=== PATIENT | male | born 1980 | race Caucasian/White ===

== ENCOUNTER 2020-01-21 00:33 | Emergency (ER) | payer OTHER ==
[~2020-01-21] VITALS: Ht 172.7 cm; Wt 104.3 kg
[2020-01-21] MEDS ORDERED: MAGIC MOUTHWASH SWISH&SPIT (01:20)
[2020-01-21] MEDS ORDERED: HYDROCODONE-ACE15 ML PO (01:21)
[2020-01-21] MEDS ORDERED: PREDNISONE50 MG PO (01:21)
[2020-01-21 01:33] VITALS: BP 149/95
[2020-01-24 05:09] LABS: HSV 1 DNA Negative (Negative); HSV 2 DNA Negative (Negative)
== END 2020-01-21 01:34 | disposition home or self-care (01) ==
LOC: M.ERS 00:33
PROVIDERS: Emergency Medicine
DX: B08.5 Enteroviral vesicular pharyngitis (principal); I10 Essential (primary) hypertension; F41.9 Anxiety disorder, unspecified; J45.909 Unspecified asthma, uncomplicated